=== PATIENT | male | born 1995 | race Caucasian/White ===

== ENCOUNTER 2024-08-12 05:39 | Emergency (ER) | payer BC, SELFPAY ==
[2024-08-12 05:40] VITALS: BP 118/64
[2024-08-12 06:06] VITALS: BMI 21.1
[2024-08-12 06:08] VITALS: BP 107/80
[2024-08-12 06:11] VITALS: BP 107/80
--- NOTE | 2024-08-12 06:17 | ED.GENMED ---
History of Present Illness
General
Chief Complaint: Head Injury
Source: patient and family
Exam Limitations: none
Time Seen by Provider: 08/12/24 06:03
History of Present Illness
History of Present Illness:
28-year-old male limited past medical history told he may have jaundice previously, presents after syncopal event diagnosed pneumonia to course of antibiotics and a steroid for ear pain, was recovering slowly, had some hives last night mother gave
some Claritin went to bed, woke up felt dizzy positive nosebleed passed out twice struck his shoulder and his head, overall feeling okay now no headache, no neck pain breathing is okay some bruising on his right posterior shoulder mom thinks he
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
Past History
Past History
ED Past Medical History: Other (Jaundice)
Social History
Tobacco: Non-smoker
Alcohol: None
Drug: None
Personal: Single
Living: with family
Employment: Employed
Review of Systems
Review of Systems
All Other Systems: Not applicable
Constitutional: Reports fatigue; Denies fever
EENT: Reports other (Ear pressure earlier improved, nosebleed)
Respiratory: Denies cough or trouble breathing
Cardiac: Reports syncope
ABD/GI: Reports no symptoms
: Reports no symptoms
Musculoskeletal: Reports no symptoms
Skin: Reports itching
Neurological: Reports weakness
Endocrine: Reports no symptoms
Phy Exam
Physical Exam
Physical Exam:
Physical Exam
General: no apparent distress, not acutely ill
Neck: Pale
Heart: Regular
Lungs: no acute respiratory distress. clear bilaterally
Abdomen: Nontender
Neuro: alert and oriented. no focal neurological deficits
Skin: no rash
Psychiatric: well kept. interactive and cooperative
Extremities: no edema. Some bruising of his right shoulder
Course
Orders/Labs/Results
Orders:
Orders
08/12/24 06:16
Electrocardiogram (*1) Urgent
Reason for Study: Other
Other Reason for Exam: trauma
CT Cervical Spine W/o Iv Contr Urgent
Comment:
Reason For Exam: fall
CT Head W/o Iv Contrast Urgent
Comment:
Reason For Exam: fall
Cardiac Monitoring- Treatment ONCE
EKG- Treatment ONCE
0.9% Sodium Chloride 1000 ml [Nss] 1,000 ml IV BOLUS
CR Chest - 2 Views Urgent
Comment:
Reason For Exam: fall pna
08/12/24 06:20
Complete Blood Count/With Diff Urgent
Comprehensive Metabolic Panel Urgent
Abnormal Lab Results
08/12/24
06:20
Abs Immat Gran (auto) 0.1 H 10^3/uL
(0-0.05)
Absolute Monos (auto) 1.5 H 10^3/uL
(0.1-0.6)
Immature Gran % 0.6 H %
(0-0.5)
Lymphocytes % 17.0 L %
(20.5-51.1)
Monocytes % 19.2 H %
(1.7-9.3)
Glucose 110 H mg/dl
(70-99)
08/12/24 06:20
08/12/24 06:20
Vital Signs
Initial and Last Documented VS:
Initial Vital Signs
Temp Pulse Resp BP Pulse Ox
98 F 110 24 118/64 100
08/12/24 05:40 08/12/24 05:40 08/12/24 05:40 08/12/24 05:40 08/12/24 05:40
Last Documented Vital Signs
Temp Pulse Resp BP Pulse Ox
98 F 85 24 117/68 99
08/12/24 05:40 08/12/24 06:26 08/12/24 06:26 08/12/24 06:26 08/12/24 06:26
MDM/Problems Addressed
Differential Diagnosis Includes:
Syncope deconditioning covering for pneumonia underlying blood dyscrasia electrolyte abnormality arrhythmia acute trauma
MDM/Problems Addressed:
Syncope
*Radiology
Radiology exam reviewed: radiology read reviewed
*Pulse Oximetry
Patient hypoxic: no
*EKG
Interpreted by ED Provider?: Yes
Interpretation: normal
Comparison EKG: no comparison EKG present
Heart Rate: 78
Rate: normal
Rhythm: sinus
Ischemia: no ischemia
*[employer] Interpretation
Rate: normal
Heart Rate: 78
Rhythm: sinus
*Critical Care Note
Total Time (30-74mins, 75-104mins- exclusive of procedures): Not Applicable
Update Note
Update Note:
Update labs noted EKG noted imaging noted formal report pending
Patient looks well with stable vital signs a liter of saline is gone and will check orthostatics discharge likely
ED Attending Note
-
Portions of this chart may have been created with voice recognition software.� Occasional wrong word or��sound alike� substitutions may have occurred due to the inherent limitations of voice recognition software.
Discharge Plan
Departure
Patient Disposition: Home (Routine Discharge)
Date of Disposition: 08/12/24
Time of Disposition: 07:36
Patient with high blood pressure during this ER visit?: No
Condition: Good
Covid-19: Not Applicable
Discharge Problem:
Syncopal episodes
Instructions: Minor Head Injury (DC), Fainting, Adult ED
Prescriptions:
No Action
No Current Medications
0
Referrals:
Vee King, DO [Family Provider] - Next open appointment
Activity Restrictions/Additional Instructions:
drink plenty of fluids
Interventions
Interventions:
*Risk Screen - Suicide Last Done: 08/12/24 05:40
*General Assessment Last Done: 08/12/24 06:09
*Neglect/Abuse Screening Last Done: 08/12/24 05:40
ED- Fall Risk Assessment Last Done: 08/12/24 06:09
*ED COVID-19 Vaccine History Last Done: 08/12/24 06:09
*Nursing Disposition Last Done: 08/12/24 07:50
ED-Musculoskeletal Assessment Last Done: 08/12/24 06:09
ED- Neurological Assessment Last Done: 08/12/24 06:09
ED-Skin Assessment Last Done: 08/12/24 06:09
Discharge Date and Time
Discharge Date/Time: 08/12/24 08:07
Print Language: BRAZILIAN
[2024-08-12] MEDS: NSS 1000 IV (06:18)
[2024-08-12 06:25] LABS: % Basophils 0.5 % (0-2); % Eosinophils 1.1 % (0-6); % Immature Granulocytes 0.6 % (0-0.5); % Monocytes 19.2 % (1.7-9.3); % Neutrophils 61.6 % (42.2-75.2); Absolute Eosinophils 0.1 10^3/uL (0-0.7); Absolute Immature Granulocytes 0.1 10^3/uL (0-0.05); Absolute Lymphocytes 1.4 10^3/uL (1.2-3.4); Absolute Monocytes 1.5 10^3/uL (0.1-0.6); Absolute Neutrophils 4.9 10^3/uL (1.4-6.5); Hematocrit 43.6 % (39.0-52.0); Hemoglobin 15.2 g/dL (13.0-18.0); Mean Corp Hgb Conc. 34.9 g/dL (33.0-37.0); Mean Corpuscular Hgb 28.3 pg (27.0-31.0); Nucleated Red Blood Cells % 0 % (-); Platelet Count 230 10^3/uL (130-400); Red Blood Cell Count 5.38 10^6/uL (4.70-6.10); Red Cell Dist. Width 13.2 % (11.5-14.5); White Blood Cell Count 7.9 10^3/uL (4.8-10.8)
[2024-08-12 06:26] VITALS: BP 117/68
[2024-08-12 06:45] LABS: ALT (SGPT) 26 U/L (0-50); AST (SGOT) 22 U/L (17-59); Alkaline Phosphatase 52 U/L (38-126); Blood Urea Nitrogen 13 mg/dl (9-20); Calcium 9.4 mg/dl (8.4-10.2); Carbon Dioxide 22 mmol/L (22-30); Chloride 102 mmol/L (98-107); Estimated Creatinine Clearance 122 ml/min; Glucose 110 mg/dl (70-99); Potassium 4.4 mmol/L (3.5-5.1); Sodium 139 mmol/L (135-145); Total Protein 6.9 g/dl (6.3-8.2); eGFR > 60.00
[2024-08-12 07:38] VITALS: BP 112/76; BP 116/67; BP 122/73; PULSE 104; PULSE 82; PULSE 91
== END 2024-08-12 08:07 | disposition home or self-care (01) ==
LOC: EMR 05:39
PROVIDERS: EMERGENCY PHYSICIAN Emergency Medicine; FAMILY PHYSICIAN Family Medicine
DX: R55 Syncope and collapse (principal); S40.011A Contusion of right shoulder, initial encounter; W19.XXXA Unspecified fall, initial encounter
CPT/HCPCS: 99285; 96360; 70450; 71046; 72125; 80053; 85025; 93005